=== PATIENT | male | born 1980 | race Caucasian/White ===

== ENCOUNTER 2023-08-22 13:23 | Inpatient (IN) | payer OTHER ==
[2023-08-22 16:30] VITALS: BMI 29.8
[2023-08-22] MEDS ORDERED: COLLOIDAL OATMEAL 1 BAR EACH TP PRN (17:27)
[2023-08-22] MEDS ORDERED: MAG HYDROX/AL HYDROX/SIMETH 30 ML UNIT-DOSE CUP PO PRN (17:27)
[2023-08-22] MEDS ORDERED: guaiFENesin 600 MG TABLET.ER (FP) PO PRN (17:27)
[2023-08-22] MEDS ORDERED: BENZOCAINE/MENTHOL (CHLORASEPTIC ) LOZENGE MM PRN (17:27)
[2023-08-22] MEDS ORDERED: NICOTINE POLACRILEX 2 MG GUM BUC PRN (17:27)
[2023-08-22] MEDS ORDERED: MAGNESIUM HYDROX 2400MG/30ML ORAL SUSPENSION 30 ML CUP PO PRN (17:27)
[2023-08-22] MEDS ORDERED: NALOXONE HCL 0.4 MG/ML VIAL IM PRN (17:27)
[2023-08-22] MEDS ORDERED: LOPERAMIDE HCL 2 MG CAPSULE PO PRN (17:27)
[2023-08-22] MEDS ORDERED: ACETAMINOPHEN 325 MG TABLET (FP) PO PRN (17:27)
[2023-08-22] MEDS ORDERED: IBUPROFEN 400 MG TABLET (FP) PO PRN (17:27)
[2023-08-22] MEDS ORDERED: BENZONATATE 200 MG CAPSULE PO PRN (17:27)
[2023-08-22] MEDS ORDERED: NALOXONE HCL (KLOXXADO) 8 MG SPRAY NS PRN (17:27)
[2023-08-22] MEDS ORDERED: POLYETHYLENE GLYCOL (HEALTHYLAX) 3350 17 GM PACKET PO PRN (17:27)
[2023-08-22] MEDS ORDERED: hydrOXYzine PAMOATE 25 MG CAPSULE (FP) PO PRN (17:27)
[2023-08-22] MEDS ORDERED: ALBUTEROL SO4 HFA INHALER IH PRN (19:24)
[2023-08-22] MEDS ORDERED: TUBERCULIN PPD 5 TU/0.1ML SYRINGE (IN PATIENT USE ONLY) ID ONE (21:30)
[2023-08-22] MEDS ORDERED: MELATONIN 5 MG TABLETS PO SCH (22:00)
[2023-08-22] MEDS ORDERED: traZODone HCL 50 MG TABLET (FP) PO ONE (22:00)
[2023-08-22] MEDS ORDERED: THIAMINE HCL 100 MG TABLET (FP) PO SCH (22:00)
[2023-08-22] MEDS ORDERED: IBUPROFEN 600 MG TABLET (FP) PO ONE (22:21)
[2023-08-22] MEDS: IBUPROFEN 600 MG TABLET (FP) PO PRN (22:22)
[2023-08-23 08:27] LABS: POTASSIUM 3.8 mmol/L (3.5-5.1)
[2023-08-23 08:29] LABS: ALBUMIN 3.7 g/dl (3.4-5.0); CALCIUM 8.7 mg/dL (8.5-10.1)
[2023-08-23 08:32] LABS: CREATININE 0.8 mg/dL (0.55-1.3)
[2023-08-23 08:34] LABS: BILIRUBIN,TOTAL 0.9 mg/dL (0.2-1); TOT PROT 6.5 g/dl (6.4-8.2)
[2023-08-23 08:36] LABS: HEMATOCRIT 44.8 % (35.4-49); HEMOGLOBIN 14.6 GM/dL (11.7-16.9); MCH 27.3 pg (25.7-33.7); MCHC 32.6 g/dl (32.0-35.9); MEAN CELL VOLUME 83.7 fl (80-96); PLATELET COUNT 272 10^3/uL (134-434); RBC 5.35 M/mm3 (4.00-5.60); RDW 14.4 % (11.9-15.9); WHITE BLOOD COUNT 5.8 K/mm3 (4.0-10.0)
[2023-08-23] MEDS: PANTOPRAZOLE 20 MG TABLET PO SCH ×2 (09:59→10:25)
[2023-08-23] MEDS ORDERED: PRENATAL VITAMINS W/ FOLIC ACID TABLET (FP) PO SCH (10:00)
[2023-08-23] MEDS ORDERED: NICOTINE 14 MG/24 HOURS TOPICAL PATCH TD SCH (10:00)
[2023-08-23] MEDS: IBUPROFEN 600 MG TABLET (FP) PO PRN (10:22)
[2023-08-23] MEDS ORDERED: GABAPENTIN 300 MG CAPSULE PO SCH (14:00)
[2023-08-23] MEDS ORDERED: methaDONE HCL 10 MG TABLET PO ONE (15:00)
[2023-08-23 15:19] VITALS: BP 153/83; PULSE 88; RESP 17; TEMP 97.9
[2023-08-23 15:26] LABS: SYPHILIS W/ RPR CONF NON-REACTIVE (NONREACTIVE)
[2023-08-23] MEDS ORDERED: traZODone HCL 50 MG TABLET (FP) PO SCH (22:00)
== END 2023-08-23 16:03 | disposition still patient (30) | DRG 772 ==
LOC: YASAS 13:23 → Y5N 21:36 → Y3N 08-23 15:27 → Y5N 08-23 15:42
PROVIDERS: ADMIT Allergy & Immunology; ATTEND Psychiatry & Neurology Pain Medicine
PROC: HZ42ZZZ Group Counseling for Substance Abuse Treatment, Cognitive-Behavioral (ICD-10-PCS; principal; 2023-08-22)
DX: F11.20 Opioid dependence, uncomplicated (principal); F12.20 Cannabis dependence, uncomplicated; F13.20 Sedative, hypnotic or anxiolytic dependence, uncomplicated; F17.210 Nicotine dependence, cigarettes, uncomplicated; E78.00 Pure hypercholesterolemia, unspecified; F19.280 Other psychoactive substance dependence with psychoactive substance-induced anxiety disorder; F19.24 Other psychoactive substance dependence with psychoactive substance-induced mood disorder; R73.03 Prediabetes; Z99.89 Dependence on other enabling machines and devices; S82.891D Other fracture of right lower leg, subsequent encounter for closed fracture with routine healing; W19.XXXD Unspecified fall, subsequent encounter; Z88.8 Allergy status to other drugs, medicaments and biological substances
CPT/HCPCS: 36415; 80053; 85027; 86780; 86803; 87635; 93005; 93010

== ENCOUNTER 2023-08-23 15:52 | Inpatient (IN) | payer OTHER ==
[2023-08-23] MEDS ORDERED: POLYETHYLENE GLYCOL (HEALTHYLAX) 3350 17 GM PACKET PO PRN (18:28)
[2023-08-23] MEDS ORDERED: NALOXONE HCL (KLOXXADO) 8 MG SPRAY NS PRN (18:28)
[2023-08-23] MEDS ORDERED: IBUPROFEN 400 MG TABLET (FP) PO PRN (18:28)
[2023-08-23] MEDS ORDERED: BENZONATATE 200 MG CAPSULE PO PRN (18:28)
[2023-08-23] MEDS ORDERED: MAGNESIUM HYDROX 2400MG/30ML ORAL SUSPENSION 30 ML CUP PO PRN (18:28)
[2023-08-23] MEDS ORDERED: NALOXONE HCL 0.4 MG/ML VIAL IM PRN (18:28)
[2023-08-23] MEDS ORDERED: MAG HYDROX/AL HYDROX/SIMETH 30 ML UNIT-DOSE CUP PO PRN (18:28)
[2023-08-23] MEDS ORDERED: DICYCLOMINE HCL 10 MG CAPSULE PO PRN (18:28)
[2023-08-23] MEDS ORDERED: BISMUTH SUBSALICYLATE 524 MG/30 ML PO PRN (18:28)
[2023-08-23] MEDS ORDERED: ONDANSETRON *ODT* 4 MG TABLET SL PRN (18:28)
[2023-08-23] MEDS ORDERED: LOPERAMIDE HCL 2 MG CAPSULE PO PRN (18:28)
[2023-08-23] MEDS ORDERED: P-EPHED 60MG/TRIPROLIDI 2.5MG TABLET PO PRN (18:28)
[2023-08-23] MEDS ORDERED: BENZOCAINE/MENTHOL (CHLORASEPTIC ) LOZENGE MM PRN (18:28)
[2023-08-23] MEDS ORDERED: guaiFENesin 600 MG TABLET.ER (FP) PO PRN (18:28)
[2023-08-23 18:34] VITALS: BMI 29.2
[2023-08-23] MEDS: THIAMINE HCL 100 MG TABLET (FP) PO SCH (22:38)
[2023-08-23] MEDS: MELATONIN 5 MG TABLETS PO SCH (22:38)
[2023-08-23] MEDS: hydrOXYzine PAMOATE 25 MG CAPSULE (FP) PO PRN (22:38)
[2023-08-23] MEDS: METHOCARBAMOL 500 MG TABLET PO PRN (22:38)
[2023-08-24] MEDS ORDERED: methaDONE HCL 10 MG TABLET (FOR DETOX USE ONLY) PO ONE (10:00)
[2023-08-24] MEDS: METHOCARBAMOL 500 MG TABLET PO PRN ×2 (10:19→18:47)
[2023-08-24] MEDS: IBUPROFEN 600 MG TABLET (FP) PO PRN ×2 (10:19→18:46)
[2023-08-24] MEDS: PANTOPRAZOLE 20 MG TABLET PO SCH (10:20)
[2023-08-24] MEDS: PRENATAL VITAMINS W/ FOLIC ACID TABLET (FP) PO SCH (10:20)
[2023-08-24] MEDS: GABAPENTIN 300 MG CAPSULE PO SCH ×2 (13:29→21:38)
[2023-08-24] MEDS: NICOTINE POLACRILEX 2 MG GUM BUC PRN (13:31)
[2023-08-24] MEDS: hydrOXYzine PAMOATE 25 MG CAPSULE (FP) PO PRN (19:27)
[2023-08-24] MEDS: traZODone HCL 50 MG TABLET (FP) PO SCH (21:38)
[2023-08-24] MEDS: THIAMINE HCL 100 MG TABLET (FP) PO SCH (21:38)
[2023-08-24] MEDS: MELATONIN 5 MG TABLETS PO SCH (21:38)
[2023-08-25] MEDS: IBUPROFEN 600 MG TABLET (FP) PO PRN ×2 (05:25→20:17)
[2023-08-25] MEDS: GABAPENTIN 300 MG CAPSULE PO SCH ×3 (05:25→21:30)
[2023-08-25] MEDS: PRENATAL VITAMINS W/ FOLIC ACID TABLET (FP) PO SCH (10:35)
[2023-08-25] MEDS: PANTOPRAZOLE 20 MG TABLET PO SCH (10:35)
[2023-08-25] MEDS: METHOCARBAMOL 500 MG TABLET PO PRN ×2 (10:35→17:35)
[2023-08-25] MEDS: ACETAMINOPHEN 325 MG TABLET (FP) PO PRN (17:02)
[2023-08-25] MEDS: cloNIDine HCL 0.1 MG TABLET PO PRN (17:35)
[2023-08-25] MEDS: ALBUTEROL SO4 HFA INHALER IH PRN (20:17)
[2023-08-25] MEDS: MELATONIN 5 MG TABLETS PO SCH (21:30)
[2023-08-25] MEDS: THIAMINE HCL 100 MG TABLET (FP) PO SCH (21:30)
[2023-08-25] MEDS: traZODone HCL 50 MG TABLET (FP) PO SCH (21:30)
[2023-08-26] MEDS: GABAPENTIN 300 MG CAPSULE PO SCH ×3 (05:50→22:11)
[2023-08-26] MEDS: METHOCARBAMOL 500 MG TABLET PO PRN ×3 (08:06→22:13)
[2023-08-26] MEDS: IBUPROFEN 600 MG TABLET (FP) PO PRN ×3 (08:06→22:13)
[2023-08-26] MEDS ORDERED: methaDONE HCL 10 MG TABLET (FOR DETOX USE ONLY) PO ONE (10:00)
[2023-08-26] MEDS: PRENATAL VITAMINS W/ FOLIC ACID TABLET (FP) PO SCH (10:15)
[2023-08-26] MEDS: PANTOPRAZOLE 20 MG TABLET PO SCH (10:15)
[2023-08-26] MEDS: ALBUTEROL SO4 HFA INHALER IH PRN ×2 (10:18→19:00)
[2023-08-26] MEDS: ACETAMINOPHEN 325 MG TABLET (FP) PO PRN (10:20)
[2023-08-26] MEDS: cloNIDine HCL 0.1 MG TABLET PO PRN (10:21)
[2023-08-26] MEDS: hydrOXYzine PAMOATE 25 MG CAPSULE (FP) PO PRN ×2 (10:21→22:11)
[2023-08-26] MEDS: NICOTINE POLACRILEX 2 MG GUM BUC PRN ×3 (10:22→19:00)
[2023-08-26] MEDS: traZODone HCL 50 MG TABLET (FP) PO SCH (22:11)
[2023-08-26] MEDS: MELATONIN 5 MG TABLETS PO SCH (22:11)
[2023-08-26] MEDS: THIAMINE HCL 100 MG TABLET (FP) PO SCH (22:12)
[2023-08-27] MEDS: GABAPENTIN 300 MG CAPSULE PO SCH ×3 (05:19→22:30)
[2023-08-27] MEDS: hydrOXYzine PAMOATE 25 MG CAPSULE (FP) PO PRN ×3 (05:21→14:31)
[2023-08-27] MEDS: METHOCARBAMOL 500 MG TABLET PO PRN ×3 (05:21→19:16)
[2023-08-27] MEDS: IBUPROFEN 600 MG TABLET (FP) PO PRN ×3 (05:21→22:32)
[2023-08-27] MEDS: PRENATAL VITAMINS W/ FOLIC ACID TABLET (FP) PO SCH (11:06)
[2023-08-27] MEDS: PANTOPRAZOLE 20 MG TABLET PO SCH (11:06)
[2023-08-27] MEDS: NICOTINE POLACRILEX 2 MG GUM BUC PRN (17:16)
[2023-08-27] MEDS: ACETAMINOPHEN 325 MG TABLET (FP) PO PRN (19:16)
[2023-08-27] MEDS: ALBUTEROL SO4 HFA INHALER IH PRN (22:28)
[2023-08-27] MEDS: THIAMINE HCL 100 MG TABLET (FP) PO SCH (22:30)
[2023-08-27] MEDS: MELATONIN 5 MG TABLETS PO SCH (22:30)
[2023-08-27] MEDS: traZODone HCL 50 MG TABLET (FP) PO SCH (22:30)
[2023-08-28] MEDS: GABAPENTIN 300 MG CAPSULE PO SCH ×2 (06:39→13:06)
[2023-08-28] MEDS: PRENATAL VITAMINS W/ FOLIC ACID TABLET (FP) PO SCH (09:36)
[2023-08-28] MEDS: METHOCARBAMOL 500 MG TABLET PO PRN (09:36)
[2023-08-28] MEDS: PANTOPRAZOLE 20 MG TABLET PO SCH (09:36)
[2023-08-28] MEDS: IBUPROFEN 600 MG TABLET (FP) PO PRN (09:36)
[2023-08-28] MEDS: ALBUTEROL SO4 HFA INHALER IH PRN (09:38)
[2023-08-28 13:31] VITALS: BP 109/62; PULSE 69; RESP 18; TEMP 97.6
== END 2023-08-28 13:08 | disposition other institution (70) | DRG 773 ==
LOC: YASAS 15:52 → Y3N 15:54
PROVIDERS: ADMIT Allergy & Immunology; ATTEND Surgery
PROC: HZ2ZZZZ Detoxification Services for Substance Abuse Treatment (ICD-10-PCS; principal; 2023-08-23)
DX: F11.23 Opioid dependence with withdrawal (principal); F15.20 Other stimulant dependence, uncomplicated; F17.210 Nicotine dependence, cigarettes, uncomplicated; J45.909 Unspecified asthma, uncomplicated; K21.9 Gastro-esophageal reflux disease without esophagitis; S01.511A Laceration without foreign body of lip, initial encounter; Y04.2XXA Assault by strike against or bumped into by another person, initial encounter; Y92.238 Other place in hospital as the place of occurrence of the external cause; S82.891D Other fracture of right lower leg, subsequent encounter for closed fracture with routine healing; W19.XXXD Unspecified fall, subsequent encounter; Z99.89 Dependence on other enabling machines and devices; Z88.8 Allergy status to other drugs, medicaments and biological substances; Z59.00 Homelessness unspecified
CPT/HCPCS: 87635

== ENCOUNTER 2023-08-25 11:07 | Emergency (ER) | payer OTHER ==
[2023-08-25 11:34] VITALS: TEMP 98.6; BMI 302.0
[2023-08-25 13:31] VITALS: BP 107/65; PULSE 70; RESP 16
== END 2023-08-25 13:33 | disposition home or self-care (01) ==
LOC: JER 11:07 → JERFT 11:07 → JER 13:33
DX: S00.511A Abrasion of lip, initial encounter (principal); Y04.0XXA Assault by unarmed brawl or fight, initial encounter
CPT/HCPCS: 99282-25

== ENCOUNTER 2023-08-28 13:24 | Inpatient (IN) | payer OTHER ==
[2023-08-28] MEDS ORDERED: MAGNESIUM HYDROX 2400MG/30ML ORAL SUSPENSION 30 ML CUP PO PRN (14:04)
[2023-08-28] MEDS ORDERED: POLYETHYLENE GLYCOL (HEALTHYLAX) 3350 17 GM PACKET PO PRN (14:04)
[2023-08-28] MEDS ORDERED: MAG HYDROX/AL HYDROX/SIMETH 30 ML UNIT-DOSE CUP PO PRN (14:04)
[2023-08-28] MEDS ORDERED: NALOXONE HCL (KLOXXADO) 8 MG SPRAY NS PRN (14:04)
[2023-08-28] MEDS ORDERED: BENZOCAINE/MENTHOL (CHLORASEPTIC ) LOZENGE MM PRN (14:04)
[2023-08-28] MEDS ORDERED: NICOTINE POLACRILEX 2 MG GUM BUC PRN (14:04)
[2023-08-28] MEDS ORDERED: BENZONATATE 200 MG CAPSULE PO PRN (14:04)
[2023-08-28] MEDS ORDERED: NALOXONE HCL 0.4 MG/ML VIAL IVPUSH PRN (14:04)
[2023-08-28] MEDS ORDERED: LOPERAMIDE HCL 2 MG CAPSULE PO PRN (14:04)
[2023-08-28] MEDS ORDERED: COLLOIDAL OATMEAL 1 BAR EACH TP PRN (14:04)
[2023-08-28] MEDS ORDERED: guaiFENesin 600 MG TABLET.ER (FP) PO PRN (14:04)
[2023-08-28] MEDS: IBUPROFEN 600 MG TABLET (FP) PO PRN (21:06)
[2023-08-28] MEDS: THIAMINE HCL 100 MG TABLET (FP) PO SCH (21:07)
[2023-08-28] MEDS: MELATONIN 5 MG TABLETS PO SCH (21:07)
[2023-08-29] MEDS: IBUPROFEN 600 MG TABLET (FP) PO PRN ×2 (07:18→21:12)
[2023-08-29] MEDS: METHOCARBAMOL 500 MG TABLET PO PRN ×2 (07:19→21:12)
[2023-08-29] MEDS: PANTOPRAZOLE 20 MG TABLET PO SCH (09:39)
[2023-08-29] MEDS: PRENATAL VITAMINS W/ FOLIC ACID TABLET (FP) PO SCH (09:39)
[2023-08-29] MEDS: GABAPENTIN 300 MG CAPSULE PO SCH ×2 (13:43→21:12)
[2023-08-29] MEDS: IBUPROFEN 400 MG TABLET (FP) PO PRN (13:44)
[2023-08-29] MEDS ORDERED: GABAPENTIN 300 MG CAPSULE PO SCH (14:00)
[2023-08-29] MEDS: hydrOXYzine PAMOATE 25 MG CAPSULE (FP) PO PRN (21:12)
[2023-08-29] MEDS: THIAMINE HCL 100 MG TABLET (FP) PO SCH (21:12)
[2023-08-29] MEDS: MELATONIN 5 MG TABLETS PO SCH (21:12)
[2023-08-29] MEDS: traZODone HCL 50 MG TABLET (FP) PO SCH (22:27)
[2023-08-30] MEDS: METHOCARBAMOL 500 MG TABLET PO PRN ×2 (06:20→21:08)
[2023-08-30] MEDS: GABAPENTIN 300 MG CAPSULE PO SCH ×3 (06:20→21:08)
[2023-08-30] MEDS: IBUPROFEN 600 MG TABLET (FP) PO PRN ×2 (06:21→21:08)
[2023-08-30] MEDS: PRENATAL VITAMINS W/ FOLIC ACID TABLET (FP) PO SCH (09:33)
[2023-08-30] MEDS: PANTOPRAZOLE 20 MG TABLET PO SCH (09:34)
[2023-08-30] MEDS: ALBUTEROL SO4 HFA INHALER IH PRN (09:35)
[2023-08-30] MEDS: IBUPROFEN 400 MG TABLET (FP) PO PRN (13:32)
[2023-08-30] MEDS: traZODone HCL 50 MG TABLET (FP) PO SCH (21:08)
[2023-08-30] MEDS: THIAMINE HCL 100 MG TABLET (FP) PO SCH (21:08)
[2023-08-30] MEDS: MELATONIN 5 MG TABLETS PO SCH (21:08)
[2023-08-30] MEDS: hydrOXYzine PAMOATE 25 MG CAPSULE (FP) PO PRN (21:09)
[2023-08-31] MEDS: GABAPENTIN 300 MG CAPSULE PO SCH ×3 (06:09→21:17)
[2023-08-31] MEDS: METHOCARBAMOL 500 MG TABLET PO PRN ×3 (06:09→21:17)
[2023-08-31] MEDS: IBUPROFEN 600 MG TABLET (FP) PO PRN ×4 (06:10→21:17)
[2023-08-31] MEDS: PANTOPRAZOLE 20 MG TABLET PO SCH (09:55)
[2023-08-31] MEDS: ALBUTEROL SO4 HFA INHALER IH PRN (09:55)
[2023-08-31] MEDS: PRENATAL VITAMINS W/ FOLIC ACID TABLET (FP) PO SCH (09:55)
[2023-08-31] MEDS: hydrOXYzine PAMOATE 25 MG CAPSULE (FP) PO PRN (21:17)
[2023-08-31] MEDS: MELATONIN 5 MG TABLETS PO SCH (21:17)
[2023-08-31] MEDS: THIAMINE HCL 100 MG TABLET (FP) PO SCH (21:18)
[2023-08-31] MEDS: traZODone HCL 50 MG TABLET (FP) PO SCH (21:18)
[2023-09-01] MEDS: METHOCARBAMOL 500 MG TABLET PO PRN ×2 (06:02→13:04)
[2023-09-01] MEDS: GABAPENTIN 300 MG CAPSULE PO SCH ×3 (06:02→21:14)
[2023-09-01] MEDS: IBUPROFEN 400 MG TABLET (FP) PO PRN (06:02)
[2023-09-01] MEDS: ALBUTEROL SO4 HFA INHALER IH PRN (09:36)
[2023-09-01] MEDS: PRENATAL VITAMINS W/ FOLIC ACID TABLET (FP) PO SCH (09:36)
[2023-09-01] MEDS: ACETAMINOPHEN 325 MG TABLET (FP) PO PRN (09:37)
[2023-09-01] MEDS: PANTOPRAZOLE 20 MG TABLET PO SCH (09:38)
[2023-09-01] MEDS: hydrOXYzine PAMOATE 25 MG CAPSULE (FP) PO PRN (09:39)
[2023-09-01] MEDS: IBUPROFEN 600 MG TABLET (FP) PO PRN ×2 (13:04→21:15)
[2023-09-01] MEDS: MELATONIN 5 MG TABLETS PO SCH (21:14)
[2023-09-01] MEDS: traZODone HCL 50 MG TABLET (FP) PO SCH ×2 (21:15→21:33)
[2023-09-01] MEDS: THIAMINE HCL 100 MG TABLET (FP) PO SCH (21:15)
[2023-09-02] MEDS: GABAPENTIN 300 MG CAPSULE PO SCH ×3 (05:47→21:13)
[2023-09-02] MEDS: IBUPROFEN 600 MG TABLET (FP) PO PRN (05:47)
[2023-09-02] MEDS: METHOCARBAMOL 500 MG TABLET PO PRN (05:47)
[2023-09-02 06:39] VITALS: RESP 18
[2023-09-02] MEDS: PANTOPRAZOLE 20 MG TABLET PO SCH (09:47)
[2023-09-02] MEDS: ALBUTEROL SO4 HFA INHALER IH PRN (09:47)
[2023-09-02] MEDS: PRENATAL VITAMINS W/ FOLIC ACID TABLET (FP) PO SCH (09:47)
[2023-09-02] MEDS: ACETAMINOPHEN 325 MG TABLET (FP) PO PRN (09:48)
[2023-09-02] MEDS: MELATONIN 5 MG TABLETS PO SCH (21:13)
[2023-09-02] MEDS: traZODone HCL 50 MG TABLET (FP) PO SCH (21:13)
[2023-09-02] MEDS: THIAMINE HCL 100 MG TABLET (FP) PO SCH (21:13)
[2023-09-02] MEDS: hydrOXYzine PAMOATE 25 MG CAPSULE (FP) PO PRN (21:14)
[2023-09-02] MEDS: IBUPROFEN 400 MG TABLET (FP) PO PRN (21:16)
[2023-09-03] MEDS: METHOCARBAMOL 500 MG TABLET PO PRN (06:04)
[2023-09-03] MEDS: IBUPROFEN 600 MG TABLET (FP) PO PRN ×2 (06:04→21:10)
[2023-09-03] MEDS: GABAPENTIN 300 MG CAPSULE PO SCH ×3 (06:04→21:08)
[2023-09-03 07:03] VITALS: TEMP 98.1
[2023-09-03] MEDS: PRENATAL VITAMINS W/ FOLIC ACID TABLET (FP) PO SCH (09:33)
[2023-09-03] MEDS: PANTOPRAZOLE 20 MG TABLET PO SCH (09:33)
[2023-09-03] MEDS: ACETAMINOPHEN 325 MG TABLET (FP) PO PRN (09:34)
[2023-09-03] MEDS: IBUPROFEN 400 MG TABLET (FP) PO PRN (13:39)
[2023-09-03] MEDS: MELATONIN 5 MG TABLETS PO SCH (21:07)
[2023-09-03] MEDS: THIAMINE HCL 100 MG TABLET (FP) PO SCH (21:08)
[2023-09-03] MEDS: hydrOXYzine PAMOATE 25 MG CAPSULE (FP) PO PRN (21:09)
[2023-09-03] MEDS: traZODone HCL 50 MG TABLET (FP) PO SCH (21:11)
[2023-09-04] MEDS: GABAPENTIN 300 MG CAPSULE PO SCH (06:10)
[2023-09-04] MEDS: hydrOXYzine PAMOATE 25 MG CAPSULE (FP) PO PRN (06:10)
[2023-09-04] MEDS: IBUPROFEN 400 MG TABLET (FP) PO PRN (06:10)
[2023-09-04 07:01] VITALS: BP 119/73; PULSE 83
[2023-09-04] MEDS: PRENATAL VITAMINS W/ FOLIC ACID TABLET (FP) PO SCH (09:33)
[2023-09-04] MEDS: PANTOPRAZOLE 20 MG TABLET PO SCH (09:33)
[2023-09-04] MEDS: ACETAMINOPHEN 325 MG TABLET (FP) PO PRN (09:33)
[2023-09-04] MEDS: ALBUTEROL SO4 HFA INHALER IH PRN (09:34)
== END 2023-09-04 11:42 | disposition left against medical advice (07) | DRG 770 ==
LOC: YASAS 13:24 → Y5N 13:28
PROVIDERS: ADMIT Allergy & Immunology; ATTEND Psychiatry & Neurology Pain Medicine
PROC: HZ42ZZZ Group Counseling for Substance Abuse Treatment, Cognitive-Behavioral (ICD-10-PCS; principal; 2023-08-28)
DX: F11.20 Opioid dependence, uncomplicated (principal); F15.20 Other stimulant dependence, uncomplicated; F12.20 Cannabis dependence, uncomplicated; F17.210 Nicotine dependence, cigarettes, uncomplicated; E78.5 Hyperlipidemia, unspecified; J45.909 Unspecified asthma, uncomplicated; S93.401D Sprain of unspecified ligament of right ankle, subsequent encounter; W19.XXXD Unspecified fall, subsequent encounter; Z99.89 Dependence on other enabling machines and devices; Z88.0 Allergy status to penicillin
CPT/HCPCS: 71046-TC-FY

== ENCOUNTER 2024-02-29 12:37 | Inpatient (IN) | payer OTHER ==
[2024-02-29 12:59] VITALS: BMI 28.8
[2024-02-29] MEDS ORDERED: POLYETHYLENE GLYCOL (HEALTHYLAX) 3350 17 GM PACKET PO PRN (14:14)
[2024-02-29] MEDS ORDERED: NALOXONE HCL 0.4 MG/ML VIAL IM PRN (14:14)
[2024-02-29] MEDS ORDERED: guaiFENesin 600 MG TABLET.ER (FP) PO PRN (14:14)
[2024-02-29] MEDS ORDERED: LOPERAMIDE HCL 2 MG CAPSULE PO PRN (14:14)
[2024-02-29] MEDS ORDERED: BENZONATATE 200 MG CAPSULE PO PRN (14:14)
[2024-02-29] MEDS ORDERED: IBUPROFEN 600 MG TABLET (FP) PO PRN (14:14)
[2024-02-29] MEDS ORDERED: ONDANSETRON *ODT* 4 MG TABLET SL PRN (14:14)
[2024-02-29] MEDS ORDERED: MAGNESIUM HYDROX 2400MG/30ML ORAL SUSPENSION 30 ML CUP PO PRN (14:14)
[2024-02-29] MEDS ORDERED: IBUPROFEN 400 MG TABLET (FP) PO PRN (14:14)
[2024-02-29] MEDS ORDERED: BISMUTH SUBSALICYLATE 262 MG/15 ML BTL PO PRN (14:14)
[2024-02-29] MEDS ORDERED: DICYCLOMINE HCL 10 MG CAPSULE PO PRN (14:14)
[2024-02-29] MEDS ORDERED: MAG HYDROX/AL HYDROX/SIMETH 30 ML UNIT-DOSE CUP PO PRN (14:14)
[2024-02-29] MEDS ORDERED: BENZOCAINE/MENTHOL (CHLORASEPTIC ) LOZENGE MM PRN (14:14)
[2024-02-29] MEDS ORDERED: ACETAMINOPHEN 325 MG TABLET (FP) PO PRN (14:14)
[2024-02-29] MEDS ORDERED: NALOXONE HCL (KLOXXADO) 8 MG SPRAY NS PRN (14:14)
[2024-02-29] MEDS ORDERED: BUPRENORPHINE/NALOXONE 0.5 MG/0.125 MG FILM ONE (15:43)
[2024-02-29] MEDS: BUPRENORPHINE/NALOXONE 0.5 MG/0.125 MG FILM SL ONE ×2 (15:44→22:41)
[2024-02-29] MEDS: methaDONE HCL 10 MG TABLET (FOR DETOX USE ONLY) PO ONE (15:45)
[2024-02-29] MEDS: cloNIDine HCL 0.1 MG TABLET PO SCH (17:41)
[2024-02-29] MEDS: diazePAM 5 MG TABLET PO SCH (17:41)
[2024-02-29] MEDS: METHOCARBAMOL 500 MG TABLET PO PRN (17:43)
[2024-02-29] MEDS: THIAMINE 100 MG TABLET PO SCH (22:41)
[2024-02-29] MEDS: MELATONIN 5 MG TABLETS PO SCH (22:41)
[2024-02-29] MEDS: hydrOXYzine PAMOATE 25 MG CAPSULE (FP) PO PRN (22:41)
[2024-03-01] MEDS: diazePAM 5 MG TABLET PO PRN (07:24)
[2024-03-01] MEDS: PRENATAL VITAMINS W/ FOLIC ACID TABLET (FP) PO SCH (10:25)
[2024-03-01] MEDS: BUPRENORPHINE/NALOXONE 0.5 MG/0.125 MG FILM SL SCH (10:25)
[2024-03-01] MEDS: NICOTINE POLACRILEX 4 MG LOZENGE BC PRN (11:00)
[2024-03-01 11:50] LABS: HEMATOCRIT 46.1 % (35.4-49); MCH 29.9 pg (25.7-33.7); MCHC 34.6 g/dl (32.0-35.9); MEAN CELL VOLUME 86.4 fl (80-96); MEAN PLT VOLUME 7.7 fl (7.5-11.1); PLATELET COUNT 319 10^3/uL (134-434); RBC 5.34 M/mm3 (4.00-5.60); RDW 13.9 % (11.9-15.9); WHITE BLOOD COUNT 6.5 K/mm3 (4.0-10.0)
[2024-03-01 11:57] LABS: CHLORIDE 107 mmol/L (98-107); POTASSIUM 5.7 mmol/L (3.5-5.1); SODIUM 140 mmol/L (136-145)
[2024-03-01 12:05] LABS: CALCIUM 9.7 mg/dL (8.5-10.1)
[2024-03-01 12:06] LABS: ALBUMIN 4.1 g/dl (3.4-5.0); ANION GAP 3 mmol/L (4-13); BLOOD UREA NITROGEN 10.5 mg/dL (7-18); CO2 29 mmol/L (21-32); GLUCOSE,RANDOM 110 mg/dL (74-106)
[2024-03-01 12:09] LABS: CREATININE 0.8 mg/dL (0.55-1.3); SGPT/ALT 42 U/L (13-61)
[2024-03-01 12:10] LABS: BILIRUBIN,TOTAL 0.5 mg/dL (0.2-1); SGOT/AST 29 U/L (15-37); TOT PROT 7.3 g/dl (6.4-8.2)
[2024-03-01 12:12] LABS: ALK PHOS 102 U/L (45-117)
[2024-03-01] MEDS: traZODone HCL 50 MG TABLET (FP) PO SCH (22:40)
[2024-03-02] MEDS: diazePAM 5 MG TABLET PO SCH (05:22)
[2024-03-02] MEDS: methaDONE HCL 10 MG TABLET (FOR DETOX USE ONLY) PO ONE (10:37)
[2024-03-02] MEDS: BUPRENORPHINE/NALOXONE 2 MG/0.5 MG FILM PACKET SL SCH (10:38)
[2024-03-02] MEDS: SODIUM POLYSTYRENE SULFONATE 15 GM/60 ML BOTTLE PO ONE (11:14)
[2024-03-03] MEDS: diazePAM 5 MG TABLET PO SCH (05:16)
[2024-03-03] MEDS: BUPRENORPHINE/NALOXONE 4 MG/1 MG FILM PACKET SL SCH (10:08)
[2024-03-03] MEDS: QUEtiapine FUMARATE 50 MG TABLET PO ONE (11:43)
[2024-03-03] MEDS: GABAPENTIN 100 MG CAPSULE PO SCH (13:06)
[2024-03-03] MEDS: NICOTINE POLACRILEX 4 MG GUM BUC PRN (17:26)
[2024-03-03] MEDS: QUEtiapine FUMARATE 100 MG TABLET (FP) PO SCH (22:11)
[2024-03-04] MEDS: diazePAM 5 MG TABLET PO ONE (05:16)
[2024-03-04] MEDS: methaDONE HCL 10 MG TABLET (FOR DETOX USE ONLY) PO ONE (10:27)
[2024-03-04] MEDS: QUEtiapine FUMARATE 50 MG TABLET PO SCH (10:27)
[2024-03-04] MEDS: BUPRENORPHINE/NALOXONE 8 MG/2 MG FILM PACKET SL SCH (10:29)
[2024-03-04 17:33] VITALS: BP 110/72; PULSE 93; RESP 18; TEMP 96.8
[2024-03-05] MEDS ORDERED: BUPRENORPHINE/NALOXONE 8 MG/2 MG FILM PACKET SL SCH (10:00)
== END 2024-03-04 19:40 | disposition home or self-care (01) | DRG 773 ==
LOC: YASAS 12:37 → Y6N 14:34
PROVIDERS: ADMIT Allergy & Immunology; ATTEND Surgery
PROC: HZ2ZZZZ Detoxification Services for Substance Abuse Treatment (ICD-10-PCS; principal; 2024-02-29)
DX: F11.23 Opioid dependence with withdrawal (principal); F10.230 Alcohol dependence with withdrawal, uncomplicated; F13.230 Sedative, hypnotic or anxiolytic dependence with withdrawal, uncomplicated; F17.210 Nicotine dependence, cigarettes, uncomplicated; F31.9 Bipolar disorder, unspecified; F19.282 Other psychoactive substance dependence with psychoactive substance-induced sleep disorder; F19.24 Other psychoactive substance dependence with psychoactive substance-induced mood disorder; E87.5 Hyperkalemia; R73.03 Prediabetes; Z88.8 Allergy status to other drugs, medicaments and biological substances
CPT/HCPCS: 36415; 80053; 80305; 80307; 82140; 84132; 85027; 86780; 93005; 93010